=== PATIENT | male | born 1995 | race Two or more races ===

== ENCOUNTER 2018-03-22 20:08 | Emergency (ER) | payer SELFPAY ==
[2018-03-22 21:16] LABS: APPEARANCE,URINE CLEAR; BILIRUBIN,URINE NEGATIVE (NEGATIVE); COLOR,URINE STRAW; GLUCOSE, URINE NEGATIVE (NEGATIVE); KETONES,URINE NEGATIVE (NEGATIVE); LEUKOCYTE ESTERASE,URINE NEGATIVE (NEGATIVE); NITRITE,URINE NEGATIVE (NEGATIVE); PROTEIN,URINE NEGATIVE (NEGATIVE); URINE SPECIFIC GRAVITY 1.004; UROBILINOGEN,URINE NEGATIVE mg/dL (<2.0)
--- NOTE | 2018-03-22 21:41 | RADIOLOGY REPORT (SQ) ---
CLINICAL HISTORY: right testicular mass COMPARISON: None. TECHNIQUE: US SCROTUM on 03/22/2018 8:45 PM [employer] FINDINGS: Right testicle measures 5.3 x 3.7 x 2.9 cm and is normal in echotexture. The epididymis measures 1.3 cm. There is patent flow to the testis. There is a small epididymal head cyst measuring 8 mm. There is a small hydrocele. Left testicle measures 5.0 x 3.3 x 2.2 cm and is normal in echotexture. Epididymis measures 9 mm. There is patent flow to the testis. There is a 3 mm epididymal head cyst. There is a small hydrocele. IMPRESSION: No evidence of testicular mass or torsion. Tiny bilateral epididymal head cysts and small hydroceles.
[2018-03-22] MEDS ORDERED: IBUPROFEN 600 MG TABLET PO ONE (22:25)
[2018-03-22] MEDS ORDERED: ACETAMINOPHEN SOLN 325 MG/10.15 ML UDCUP PO ONE (22:25)
--- NOTE | 2018-03-22 22:25 | ER Document Report ---
ED General - General Chief Complaint: Testicular Lump Stated Complaint: TESTICLE PAIN/LUMP Time Seen by Provider: 03/22/18 20:45 Notes: Patient is a 22-year-old male without chronic medical problems who does present with 2 years of bilateral testicular pain worse on the right than the left. States that he has to sit with his legs apart as any compression of the testicle causes severe pain. He states that the pain as a throbbing, aching, constant pain. He has not tried nothing to improve the pain. He has been seen in the department on 2 separate occasions for this issue, states no ultrasound was done and that he was told it would go away but has not improved and has actually gotten worse. Denies fever or constitutional symptoms. No hematuria or dysuria. He states he does feel a lump at the top of his right testicle. He has not seen a urologist regarding this concern. TRAVEL OUTSIDE OF THE [place] IN LAST 30 DAYS: No - Related Data Allergies/Adverse Reactions: sulfamethoxazole [From [facility]] Allergy (Verified 03/22/18 20:13) trimethoprim [From [facility]] Allergy (Verified 03/22/18 20:13) Past Medical History - General Information source: Patient - Social History Smoking Status: Current Every Day Smoker Chew tobacco use (# tins/day): No Frequency of alcohol use: Occasional Drug Abuse: None Lives with: Parents Family History: Reviewed & Not Pertinent Patient has suicidal ideation: No Patient has homicidal ideation: No Neurological Medical History: Reports: Hx Migraine Renal/ Medical History: Denies: Hx Peritoneal Dialysis Psychiatric Medical History: Reports: Hx Depression - Anxiety Past Surgical History: Reports: Hx Appendectomy Review of Systems - Review of Systems Notes: Constitutional: Negative for fever. HENT: Negative for sore throat. Eyes: Negative for visual changes. Cardiovascular: Negative for chest pain. Respiratory: Negative for shortness of breath. Gastrointestinal: Negative for abdominal pain, vomiting or diarrhea. Genitourinary: Positive for testicular pain Musculoskeletal: Negative for back pain. Skin: Negative for rash. Neurological: Negative for headaches, weakness or numbness. 10 point ROS negative except as marked above and in HPI. Physical Exam - Vital signs Vitals: Temp Pulse Resp BP Pulse Ox 99.4 F 70 18 135/63 H 100 03/22/18 20:21 03/22/18 20:21 03/22/18 20:21 03/22/18 20:21 03/22/18 20:21 Interpretation: Normal Notes: PHYSICAL EXAMINATION: GENERAL: Well-appearing, well-nourished and in no acute distress. HEAD: Atraumatic, normocephalic. EYES: Pupils equal round and reactive to light, extraocular movements intact, sclera anicteric, conjunctiva are normal. ENT: nares patent, oropharynx clear without exudates. Moist mucous membranes. NECK: Normal range of motion, supple without lymphadenopathy LUNGS: Breath sounds clear to auscultation bilaterally and equal. No wheezes rales or rhonchi. HEART: Regular rate and rhythm without murmurs ABDOMEN: Soft, nontender, normoactive bowel sounds. No guarding, no rebound. No masses appreciated. : Positive for epididymal head tenderness bilaterally more prominent on the right. Positive cremasteric reflex bilaterally. No tenderness on palpation of the testicles on either side. Normal testicular lie. EXTREMITIES: Normal range of motion, no pitting or edema. No cyanosis. NEUROLOGICAL: No focal neurological deficits. Moves all extremities spo ntaneously and on command. PSYCH: Normal mood, normal affect. SKIN: Warm, Dry, normal turgor, no rashes or lesions noted. Course - Re-evaluation Re-evalutation: 03/22/18 22:25 Patient presents with a least 2 years of progressively worsening pain to the epididymis bilaterally worse on the right. On exam he has exquisite tenderness on palpation of the head of the epididymis bilaterally and his testicular ultrasound does show bilateral epididymal cysts. No evidence of testicular torsion, epididymitis, orchitis based on labs or history. I have strongly advised patient follow-up with urology at his earliest ability given that he is having daily, recurrent pain. I have advised anti-inflammatories and Tylenol as needed for pain. At this time will discharge with return precautions and follow-up recommendations. Verbal discharge instructions given a the bedside and opportunity for questions given. Medication warnings reviewed. Patient is in agreement with this plan and has verbalized understanding of return precautions and the need for primary care follow-up in the next 24-72 hours. - Vital Signs Vital signs: Temp Pulse Resp BP Pulse Ox 99.1 F 57 L 15 122/55 L 100 03/22/18 22:39 03/22/18 22:39 03/22/18 22:39 03/22/18 22:39 03/22/18 22:39 Discharge - Discharge Clinical Impression: Epididymal cyst, Testicular pain, right Condition: Good Disposition: HOME, SELF-CARE Additional Instructions: Your ultrasound does show that you have cysts on the epididymis on both sides. This is also where you are tender on exam. Given that you continue to have pain on a daily basis and that this is been ongoing for greater than 1 year I strongly encourage you to follow-up with urology for discussion of possible ma nagement options. For your pain: Take ibuprofen 600 mg and acetaminophen 1000 mg every 6 hours together as needed for pain. Return if you develop fever greater than 100.4 F, persistent vomiting, worsening of your pain, testicular swelling or any other symptoms that are worrisome to you.
[2018-03-22 22:42] LABS: CHLAM PCR NOT DETECTED (NOT DETECT); GON PCR NOT DETECTED (NOT DETECT)
[2018-03-22 22:46] VITALS: BP 122/55
== END 2018-03-22 22:46 | disposition home or self-care (01) ==
LOC: ER 20:08
DX: N50.3 Cyst of epididymis (principal); N50.812 Left testicular pain; N50.811 Right testicular pain; Z88.3 Allergy status to other anti-infective agents
CPT/HCPCS: 99284; 81001; 87491; 87591; 76870; 93976; J3490